=== PATIENT | female | born 1965 | race Caucasian/White ===

== ENCOUNTER 2017-08-17 14:15 | Emergency (ER) | payer OTHER ==
[2017-08-17 14:33] VITALS: BP 179/81; PULSE 84; RESP 16; TEMP 98.4; O2SAT 99
[2017-08-17] MEDS ORDERED: DiphenhydrAMINE 50 mg/ml Inj IVP STA (16:37)
[2017-08-17] MEDS ORDERED: DiphenhydrAMINE 50 mg/ml Inj ONE (16:47)
--- NOTE | 2017-08-17 17:24 | ED PDOC ---
HPI: Allergic Reaction Time Seen by Provider: 08/17/17 16:33 Chief Complaint (Nursing): Allergic Reaction Chief Complaint (Provider): Allergic Reaction History Per: Patient History/Exam Limitations: no limitations Onset/Duration Of Symptoms: Days (x 1 week) Current Symptoms Are (Timing): Still Present Additional Complaint(s): 51 year old female presents to the ER complaining of tongue swelling and generalized itchiness for 1 week. Initially patient had difficulty swallowing, saw her PMD last week, was prescribed Claritin and methylprednisolone, which she took with some improvement. Her itchiness and tongue swelling have improved , but are somewhat persistent, prompting her to come to the ER. Patient states she has no known food allergies. PMD: Dr. Timmy Jaime Past Medical History Reviewed: Historical Data, Nursing Documentation, Vital Signs Vital Signs: Last Vital Signs Temp 98.4 F 08/17/17 14:29 Pulse 84 08/17/17 14:29 Resp 16 08/17/17 14:29 BP 179/81 H 08/17/17 14:29 Pulse Ox 99 08/17/17 14:29 - Medical History PMH: Anxiety, HTN, Migraine - Surgical History Surgical History: - Family History Family History: States: Unknown Family Hx - Immunization History Hx Tetanus Toxoid Vaccination: No Hx Influenza Vaccination: No Hx Pneumococcal Vaccination: No - Home Medications Home Medications: Ambulatory Orders Medication Instructions Recorded Naproxen [Naprosyn] 500 mg PO BID #20 tablet 11/09/15 DiphenhydrAMINE [Benadryl] 50 mg PO Q6 PRN #24 cap 08/17/17 Epinephrine [Epipen] 0.3 mg IJ ONCE PRN #1 auto.injct 08/17/17 Famotidine [Pepcid] 20 mg PO BID #10 tab 08/17/17 predniSONE [predniSONE Tab] 3 tab PO DAILY #12 tab 08/17/17 - Allergies Allergies/Adverse Reactions: Allergies Allergy/AdvReac Type Severity Reaction Status Date / Time Penicillins Allergy ANAPHYLAXIS Verified 11/09/15 01:13 Review of Systems ROS Statement: Except As Marked, All Systems Reviewed And Found Negative ENT: Positive for: Other (tongue swelling, difficulty swallowing) Respiratory: Negative for: Shortness of Breath Skin: Positive for: Other (Generalized itchiness) Physical Exam - Reviewed Nursing Documentation Reviewed: Yes Vital Signs Reviewed: Yes - Physical Exam Appears: Positive for: Non-toxic, No Acute Distress Head Exam: Positive for: ATRAUMATIC, NORMAL INSPECTION, NORMOCEPHALIC Skin: Positive for: Normal Color, Warm, Dry. Negative for: Rash Eye Exam: Positive for: EOMI, Normal appearance, PERRL ENT: Positive for: Normal ENT Inspection, Pharynx Is (clear). Negative for: Tonsillar Swelling Neck: Positive for: Normal, Painless ROM Cardiovascular/Chest: Positive for: Regular Rate, Rhythm. Negative for: Murmur Respiratory: Positive for: Normal Breath Sounds. Negative for: Accessory Muscle Use, Respiratory Distress Extremity: Positive for: Normal ROM. Negative for: Deformity Neurologic/Psych: Positive for: Alert, Oriented. Negative for: Motor/Sensory Deficits - ECG O2 Sat by Pulse Oximetry: 99 (RA) Pulse Ox Interpretation: Normal Disposition - Clinical Impression Clinical Impression: Allergic reaction - Patient ED Disposition Is Patient to be Admitted: No - Disposition Disposition: Routine/Home Disposition Time: 17:38 Condition: FAIR Prescriptions: DiphenhydrAMINE [Benadryl] 50 mg PO Q6 PRN #24 cap PRN Reason: Rash Epinephrine [Epipen] 0.3 mg IJ ONCE PRN #1 auto.injct PRN Reason: Anaphylaxis Famotidine [Pepcid] 20 mg PO BID #10 tab predniSONE [predniSONE Tab] 3 tab PO DAILY #12 tab Instructions: Food Allergy (ED) Forms: [employer] (Nauruan) Print Language: NAMIBIAN Medical Decision Making Medical Decision Making: Time: 16:37 Initial Plan: --Benadryl 50 mg IV --Pepcid 20 mg IV --Solu-medrol 125 mg IV --Reevaluation Advised patient to follow up with PMD for referral to sign maker. Scribe Attestation: Documented by Emily Trinh, acting as a scribe for Balaji Anderson PA-C Provider Scribe Attestation: All medical record entries made by the Scribe were at my direction and personally dictated by me. I have reviewed the chart and agree that the record accurately reflects my personal performance of the history, physical exam, medical decision making, and the department course for this patient. I have also personally directed, reviewed, and agree with the discharge instructions and disposition.
== END 2017-08-17 18:08 | disposition home or self-care (01) ==
LOC: H.ER 14:15
DX: T78.40XA Allergy, unspecified, initial encounter (principal); R13.10 Dysphagia, unspecified; F41.9 Anxiety disorder, unspecified; I10 Essential (primary) hypertension; Z88.0 Allergy status to penicillin
CPT/HCPCS: 96374; 96375; 99282; J1200; J2930

== ENCOUNTER 2017-08-29 00:55 | Emergency (ER) | payer OTHER ==
[2017-08-29 01:08] VITALS: PULSE 99; TEMP 98.6
[2017-08-29] MEDS ORDERED: DiphenhydrAMINE 50 mg/ml Inj IM STA (01:44)
[2017-08-29] MEDS ORDERED: DiphenhydrAMINE 50 mg/ml Inj ONE (02:01)
--- NOTE | 2017-08-29 02:01 | ED PDOC ---
HPI: Allergic Reaction Time Seen by Provider: 08/29/17 01:25 Chief Complaint (Nursing): Allergic Reaction History Per: Patient, Family Additional Complaint(s): Pt. states for the past 2 weeks she's been having intermittent pruritic rash. States she was initially seen in ED on 08/18/2017 and was dc'd with steroids which provided transient relief of rash. She's been taking benadryl intermittently. Today rash on face did not improve with Benadryl until they came to ED and rash although present it has actually decreased in redness and pruritus. Last dose of Benadryl was taken at 1700 yesterday. Denies fever, SOB, throat swelling, hx of allergic reactions. 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 Past Medical History Reviewed: Historical Data, Nursing Documentation, Vital Signs Vital Signs: Last Vital Signs Temp 98.6 F 08/29/17 01:04 Pulse 99 H 08/29/17 01:04 Resp 16 08/29/17 01:04 BP 162/92 H 08/29/17 01:04 Pulse Ox 98 08/29/17 01:04 - Medical History PMH: Anxiety, HTN, Migraine - Surgical History Surgical History: - Family History Family History: States: No Known Family Hx - Immunization History Hx Tetanus Toxoid Vaccination: No Hx Influenza Vaccination: No Hx Pneumococcal Vaccination: No - Home Medications Home Medications: Ambulatory Orders Medication Instructions Recorded Naproxen [Naprosyn] 500 mg PO BID #20 tablet 11/09/15 DiphenhydrAMINE [Benadryl] 50 mg PO Q6 PRN #24 cap 08/17/17 Epinephrine [Epipen] 0.3 mg IJ ONCE PRN #1 auto.injct 08/17/17 Famotidine [Pepcid] 20 mg PO BID #10 tab 08/17/17 predniSONE [predniSONE Tab] 3 tab PO DAILY #12 tab 08/17/17 - Allergies Allergies/Adverse Reactions: Allergies Allergy/AdvReac Type Severity Reaction Status Date / Time Penicillins Allergy ANAPHYLAXIS Verified 11/09/15 01:13 Review of Systems ROS Statement: Except As Marked, All Systems Reviewed And Found Negative Skin: Positive for: Rash Physical Exam - Physical Exam Appears: Positive for: Well, Non-toxic, No Acute Distress Skin: Positive for: Normal Color, Warm, Rash (minimal erythema noted to b/l cheeks) Eye Exam: Positive for: EOMI, Normal appearance, PERRL ENT: Positive for: Normal ENT Inspection Neck: Positive for: Normal, Painless ROM Cardiovascular/Chest: Positive for: Regular Rate, Rhythm Respiratory: Positive for: Normal Breath Sounds. Negative for: Wheezing, Respiratory Distress Back: Positive for: Normal Inspection Extremity: Positive for: Normal ROM Neurologic/Psych: Positive for: Alert, Oriented. Negative for: Aphasia, Facial Droop - ECG O2 Sat by Pulse Oximetry: 98 - Progress ED Course And Treament: Benadryl 50mg IM ordered. On re-evaluation, pt. reports feeling better. Denies throat swelling, SOB. Disposition - Clinical Impression Clinical Impression: Rash - Patient ED Disposition Is Patient to be Admitted: No - Disposition Referrals: Inna Carranza [Outside] Disposition: Routine/Home Disposition Time: 02:02 Condition: STABLE Additional Instructions: Continue Benadryl as prescribed initially. Instructions: Skin Rash (DC) Forms: [employer] (Bruneian) Print Language: ERITREAN
[2017-08-29 02:29] VITALS: BP 147/89; RESP 18; O2SAT 99
== END 2017-08-29 02:29 | disposition home or self-care (01) ==
LOC: H.ER 00:55
DX: R21 Rash and other nonspecific skin eruption (principal); F41.9 Anxiety disorder, unspecified; I10 Essential (primary) hypertension; Z88.0 Allergy status to penicillin
CPT/HCPCS: 96372; 99282; J1200

== ENCOUNTER 2018-01-09 18:46 | Observation (INO) | payer OTHER ==
--- NOTE | 2018-01-09 19:21 | ED PDOC ---
HPI: Allergic Reaction <Derrek Sykes Y - Last Filed: 01/09/18 19:51> Chief Complaint (Provider): Allergic reaction History Per: Patient History/Exam Limitations: no limitations Onset/Duration Of Symptoms: Days (1) Current Symptoms Are (Timing): Still Present Context: denies: Travel, Food, Recent Trauma Possible Cause: Unknown Associated Symptoms: Swelling, Dizziness, Itching, Redness Home/EMS Treatment: Benadryl Severity: Mild Pain Scale Rating Of: 0 Additional History Per: Patient Additional Complaint(s): PT is a 52 yo f with PMH of HTN, Hyperlipidemia present today with a CC of allergic reaction. Pt state yesterday night she had a swelling on her lips and today morning her face, hand and feet are swelled as well B/L. PT state that she was having difficulty breathing and she tuck Benadryl at 7:00am, 12:30pm and 4:30Pm with no improvement. Pt had a one episode of vomit and a light headache and chills in the morning and dry cough for the past 2 days. The swelling is persistent and her feets are become itchy. She state that she is allergic to penecillin and shrimp but denies consuming any nor her family. She state that she had these episode before and first episode was on september after the primary care doctor prescribed amlodipine along with lisinopril. Pt denies being intubated for any of these episode. Pt denies having fever, Nausea, vomit , chest pain, abdominal pain, diarrhea, polyuria, dysuria at the moment. <Jj Jha - Last Filed: 01/10/18 00:27> Chief Complaint (Nursing): Allergic Reaction Past Medical History Vital Signs: Last Vital Signs Temp 98.2 F 01/09/18 18:51 Pulse 99 H 01/09/18 18:51 Resp 01/09/18 18:51 BP 126/87 01/09/18 18:51 Pulse Ox 100 01/09/18 19:44 <Rajeev Sykespeterson Y - Last Filed: 01/09/18 19:51> Reviewed: Historical Data, Nursing Documentation, Vital Signs Vital Signs: Last Vital Signs Temp 98.2 F 01/09/18 18:51 Pulse 99 H 01/09/18 18:51 Resp 16 01/09/18 18:51 BP 126/87 01/09/18 18:51 Pulse Ox 100 01/09/18 18:51 - Medical History PMH: Anxiety, HTN, Migraine - Surgical History Surgical History: - Family History Family History: States: Unknown Family Hx - Living Arrangements Living Arrangements: With Family - Social History Current smoker - smoking cessation education provided: No Ex-Smoker (has not smoked in the last 12 months): No Alcohol: None Drugs: Denies - Immunization History Hx Tetanus Toxoid Vaccination: No Hx Influenza Vaccination: No Hx Pneumococcal Vaccination: No <Jj Jha - Last Filed: 01/10/18 00:27> - Home Medications Home Medications: Ambulatory Orders Medication Instructions Recorded Atorvastatin [Lipitor] 10 mg PO DAILY 01/09/18 Lisinopril [Zestril] 5 mg PO DAILY 01/09/18 amLODIPine [Norvasc] 5 mg PO DAILY 01/09/18 - Allergies Allergies/Adverse Reactions: Allergies Allergy/AdvReac Type Severity Reaction Status Date / Time shellfish derived Allergy Intermediate SWELLING Verified 01/09/18 19:33 Penicillins Allergy ANAPHYLAXIS Verified 01/09/18 23:09 Review of Systems ROS Statement: Except As Marked, All Systems Reviewed And Found Negative Constitutional: Positive for: Fever, Chills (in the morning, denies having any at the moment ). Negative for: Weakness, Weight loss Eyes: Negative for: Pain, Vision Change, Conjunctivae Inflammation Cardiovascular: Positive for: Light Headedness. Negative for: Chest Pain, Palpitations, Edema Respiratory: Positive for: Cough (started 2 days ago) Gastrointestinal: Positive for: Vomiting (one episode in the morning ). Negative for: Nausea, Abdominal Pain, Diarrhea Genitourinary Female: Negative for: Dysuria, Frequency, Incontinence Musculoskeletal: Negative for: Neck Pain Neurological: Positive for: Dizziness. Negative for: Weakness, Numbness, Change in Speech, Confusion, Seizures, Altered Mental Status <Jj Jha - Last Filed: 01/10/18 00:27> Physical Exam - Reviewed Nursing Documentation Reviewed: Yes Vital Signs Reviewed: No - Physical Exam Appears: Positive for: Well, Non-toxic, No Acute Distress Head Exam: Positive for: ATRAUMATIC, NORMAL INSPECTION, NORMOCEPHALIC Skin: Positive for: Normal Color, Warm, Dry, Rash (legs and hand B/L) Eye Exam: Positive for: Normal appearance ENT: Positive for: Normal ENT Inspection, Other (generalized edema of the face ) Neck: Positive for: Normal Cardiovascular/Chest: Positive for: Regular Rate, Rhythm Respiratory: Positive for: Normal Breath Sounds. Negative for: Decreased Breath Sounds, Crackles, Rales, Rhonchi, Stridor, Wheezing Gastrointestinal/Abdominal: Positive for: Normal Exam, Bowel Sounds, Soft. 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 Time 20:40 Re-assess Pt state that her swelling is exacerbated On PE : Pt is laying down comfortable with no acute distress Change noted: Mild edema of the lateral left side of tongue Tender edema on the Hand and feet bilateral Plan: Continue same management add Tylenol 650 mg PO Add Benadryl 50mg IV CBC and CMP ordered Time: 22:33 Re-assess Pt state her tongue is more swelling and feel worse On PE: pt is laying down with no acute distress change noted Tongue is more edematous CBC and CMP are WNL except for WBC of 13 and Neutrophil% 9.4 Plan: Pt will be admitted on telemetry to tx and surveillance of allergic reaction TIme 00:25 Pt re-assess Pt is stable but not improved Plan Called Dr. Keith the hospitalist to admit the patient <Jj Jha - Last Filed: 01/10/18 00:27> Addendum Addendum: 01/09/18 19:51 Patient seen and evaluated by myself. 26 year old female has had a history of allergic reactions in the past. Patient comes today for swelling around the face and other parts of her body. Patient reports of taking Benadryl at home. On exam, patient presents with no angioedema and lungs are clear to auscultation. Patient given steroids here and will be re-evaluated. Scribe Attestation: Documented by Hayes Jaquez acting as a scribe for Dr. Derrek Sykes MD. Provider Scribe Attestation: All medical record entries made by the Scribe were at my direction and personally dictated by me. I have reviewed the chart and agree that the record accurately reflects my personal performance of the history, physical exam, medical decision making, and the department course for this patient. I have also personally directed, reviewed, and agree with the discharge instructions and disposition. <Derrek Sykes Y - Last Filed: 01/09/18 19:51>
[2018-01-09] MEDS ORDERED: DiphenhydrAMINE 50 mg/ml Inj ONE (21:12)
[2018-01-09] MEDS ORDERED: DiphenhydrAMINE 50 mg/ml Inj IVP STA (21:40)
[2018-01-09 21:48] LABS: BASO % 0.3 % (0.0-2.0); EOS # 0.3 K/uL (0.0-0.7); EOS % 2.7 % (0.0-4.0); LYMPH # 2.3 K/uL (1.0-4.3); LYMPH % 18.1 % (20.0-40.0); MEAN CELL VOLUME 85.5 fl (81.0-99.0); MEAN CORPUSCULAR HEMOGLOBIN 28.7 pg (27.0-31.0); MEAN CORPUSCULAR HGB CONC 33.6 g/dL (33.0-37.0); MEAN PLATELET VOLUME 9.2 fl (7.2-11.7); MONO # 0.8 K/uL (0.0-0.8); MONO % 6.2 % (0.0-10.0); NEUT # 9.4 K/uL (1.8-7.0); NEUT % 72.7 % (50.0-75.0); NRBC % 0.1 % (0.0-0.0); RBC 4.89 Mil/uL (3.80-5.20)
[2018-01-09 22:32] LABS: BLOOD UREA NITROGEN 10 mg/dl (7-17); GFR AFRICAN-AMERICAN > 60; GFR NON-AFRICAN AMERICAN > 60
[2018-01-09 22:33] LABS: ALB/GLOB RATIO 1.4 (1.0-2.1); ALBUMIN 4.6 g/dL (3.5-5.0); ALT/SGPT 28 U/L (9-52); AST/SGOT 20 U/L (14-36); CALCIUM 9.5 mg/dL (8.4-10.2)
--- NOTE | 2018-01-10 00:27 | CP.PCM.HP ---
History of Present Illness - History of Present Illness History of Present Illness: PMD: Addison Warner MD Chief complaint: Swelling of face/ hands and feet The Patient was seen and examined in the ED HPI: The Hx was obtained from the patient her and after review of the medical records. She is a 52 years old female with hx of HTN on Lisinopril; Migraine and multiple visits to the ED for Allergic reactions with swollen tongue, face and generalized itching. She comes today with 2 days of swollen lips, face ,tongue and hands. She referred some difficulty breathing today and took Benadryl without improvement, vomiting, headache with chills,and lightheadidness. No documented fever, chest pain, diarrhea, dysuria nor frequency. PMH: HTN; HLD: Migraine: Anxiety PSH: C section SH: Never Smoked, no illegal drug use; No Alcohol FH: States: Unknown Family Hx Allergies:Shellfish and Pencilling Medication: Reviewed Present on Admission - Present on Admission Any Indicators Present on Admission: No History of DVT/PE: No History of Uncontrolled Diabetes: No Urinary Catheter: No Decubitus Ulcer Present: No Review of Systems - Constitutional Constitutional: Chills, Fever, Headache. absent: Anorexia, Fatigue - EENT Eyes: absent: Blurred Vision, Diplopia, Floaters, Photophobia, Requires Corrective Lenses Ears: absent: Decreased Hearing, Ear Discharge, Ear Pain Nose/Mouth/Throat: absent: Epistaxis, Nasal Congestion, Nasal Discharge - Cardiovascular Cardiovascular: Edema, Palpitations. absent: Chest Pain at Rest, Dyspnea - Respiratory Respiratory: Cough. absent: Dyspnea, Wheezing, Stridor - Gastrointestinal Gastrointestinal: Abdominal Pain, Nausea. absent: Constipation, Diarrhea - Genitourinary Genitourinary: absent: Flank Pain, Hematuria, Urinary Incontinence, Urinary Frequency - Musculoskeletal Musculoskeletal: absent: Arthralgias, Back Pain, Myalgias - Integumentary Integumentary: Swelling. absent: Skin Pain, Skin Ulcer, Sores, Striae - Neurological Neurological: absent: Confusion, Focal Weakness, Loss of Vision, Restless Legs, Weakness - Psychiatric Psychiatric: absent: Anxiety, Depression, Panic Attacks - Endocrine Endocrine: absent: Palpitations, Polydipsia, Polyphagia, Polyuria - Hematologic/Lymphatic Hematologic: absent: Easy Bleeding, Easy Bruising Past Patient History - Past Medical History & Family History Past Medical History?: Yes - Past Social History Smoking Status: Unknown If Ever Smoked Chewing Tobacco Use: No Cigar Use: No Alcohol: None Drugs: Denies Home Situation {Lives}: With Family - CARDIAC Hx Hypercholesterolemia: Yes Hx Hypertension: Yes - PULMONARY Hx Respiratory Disorders: No - NEUROLOGICAL Hx Migraine: Yes - HEENT Hx HEENT Problems: No - RENAL Hx Chronic Kidney Disease: No - ENDOCRINE/METABOLIC Hx Endocrine Disorders: No - HEMATOLOGICAL/ONCOLOGICAL Hx Blood Disorders: No - INTEGUMENTARY Hx Dermatological Problems: No - MUSCULOSKELETAL/RHEUMATOLOGICAL Hx Musculoskeletal Disorders: No - GASTROINTESTINAL Hx Gastrointestinal Disorders: No Hx Gastroesophageal Reflux: No - GENITOURINARY/GYNECOLOGICAL Hx Genitourinary Disorders: No - PSYCHIATRIC Hx Anxiety: Yes - SURGICAL HISTORY Hx Surgeries: Yes Hx Section: Yes - ANESTHESIA Hx Anesthesia: Yes Meds Allergies/Adverse Reactions: Allergies Allergy/AdvReac Type Severity Reaction Status Date / Time shellfish derived Allergy Intermediate SWELLING Verified 01/09/18 19:33 Penicillins Allergy ANAPHYLAXIS Verified 01/09/18 23:09 Physical Exam - Constitutional Appears: No Acute Distress - Head Exam Head Exam: ATRAUMATIC, NORMOCEPHALIC Additional comments: Mild swelling to both sides of the face and below the eyes. - Eye Exam Eye Exam: EOMI, Periorbital tenderness Pupil Exam: NORMAL ACCOMODATION, PERRL - ENT Exam ENT Exam: Mucous Membranes Moist, Normal Exam, Normal External Ear Exam Additional comments: Swollen tongue - Neck Exam Neck exam: Positive for: Full Rom, Normal Inspection - Respiratory Exam Respiratory Exam: Clear to Auscultation Bilateral. absent: Rales, Rhonchi, Wheezes - Cardiovascular Exam Cardiovascular Exam: REGULAR RHYTHM, RRR, +S1, +S2. absent: Gallop, JVD - GI/Abdominal Exam GI & Abdominal Exam: Normal Bowel Sounds, Soft. absent: Mass, Organomegaly, Tenderness - Rectal Exam Rectal Exam: Deferred - Extremities Exam Extremities exam: Positive for: full ROM Additional comments: Both feet swollen at the dorsal region, tender to palpation, mild edema to the palms of the hands. - Back Exam Back exam: NORMAL INSPECTION. absent: CVA tenderness (L), CVA tenderness (R) - Neurological Exam Neurological exam: Alert, CN II-XII Intact, Oriented x3, Reflexes Normal - Psychiatric Exam Psychiatric exam: Normal Affect, Normal Mood - Skin Skin Exam: Dry, Normal Color, Pallor, Warm Results - Vital Signs Recent Vital Signs: Last Vital Signs Temp 99.2 F 01/09/18 23:11 Pulse 91 H 01/09/18 23:11 Resp 18 01/09/18 23:11 BP 115/73 01/09/18 23:11 Pulse Ox 100 01/10/18 00:27 - Labs Result Diagrams: 01/09/18 21:35 01/09/18 21:55 Labs: Laboratory Results - last 24 hr 01/09/18 01/09/18 21:35 21:55 WBC 13.0 H RBC 4.89 Hgb 14.0 Hct 41.8 MCV 85.5 MCH 28.7 MCHC 33.6 RDW 14.0 Plt Count 306 MPV 9.2 Neut % (Auto) 72.7 Lymph % (Auto) 18.1 L Jerome % (Auto) 6.2 Eos % (Auto) 2.7 Baso % (Auto) 0.3 Neut # (Auto) 9.4 H Lymph # (Auto) 2.3 Jerome # (Auto) 0.8 Eos # (Auto) 0.3 Baso # (Auto) 0.0 Sodium 141 Potassium 4.5 Chloride 104 Carbon Dioxide 23 Anion Gap 19 BUN 10 Creatinine 0.6 L Est GFR ( Amer) > 60 Est GFR (Non-Af Amer) > 60 Random Glucose 119 H Calcium 9.5 Total Bilirubin 0.3 AST 20 ALT 28 Alkaline Phosphatase 97 Total Protein 7.9 Albumin 4.6 Globulin 3.3 Albumin/Globulin Ratio 1.4 Assessment & Plan - Assessment and Plan (Free Text) Assessment: #. Allergic reaction with Angeoedema #. Leukocytosis #. HTN #. Anxiety Plan: 52 years old female with hx of HTN on Lisinopril; Migraine and multiple visits to the ED for Allergic reactions with swollen tongue, face and generalized itching. She comes today with 2 days of swollen lips, face ,tongue and hands with some difficulty breathing and improvement from Benadryl. #. Allergic reaction with Angeoedema - D/C Lisinopril - Methylpredisolone IV - Benadryl - Pepcid - Tylenol for pain #. Leukocytosis reactive - follow WBC #. HTN - Amlodipine - follow Blood pressures #. Anxiety - Xanax PRN #. DVT prophylaxis with lovenox #. Code Status: Full - Date & Time Date: 01/10/18 Time: 00:27
[2018-01-10] MEDS ORDERED: methylPREDNISolone 40 MG in Sodium Chloride 0.9% 50 ML IVPB SCH (04:00)
[2018-01-10] MEDS: DiphenhydrAMINE 50 mg/ml Inj IVP SCH ×2 (05:04→09:04)
[2018-01-10] MEDS: MethylPREDNISolone 40 mg Vial IVP SCH ×2 (05:04→09:05)
[2018-01-10 05:36] LABS: BASO % 0.2 % (0.0-2.0); EOS % 0.1 % (0.0-4.0); HEMOGLOBIN 13.8 g/dL (12.0-16.0); LYMPH % 9.2 % (20.0-40.0); MEAN CELL VOLUME 85.1 fl (81.0-99.0); MEAN PLATELET VOLUME 8.7 fl (7.2-11.7); MONO # 0.1 K/uL (0.0-0.8); MONO % 0.8 % (0.0-10.0); NEUT % 89.7 % (50.0-75.0); PLATELET COUNT 313 K/uL (130-400); RBC 4.78 Mil/uL (3.80-5.20); RED CELL DISTRIBUTION WIDTH 13.6 % (11.5-14.5); WHITE BLOOD COUNT 11.2 K/uL (4.8-10.8)
[2018-01-10 08:03] VITALS: BP 100/61; PULSE 77; RESP 20; TEMP 97.7; O2SAT 99
[2018-01-10] MEDS: Enoxaparin 40 mg Syringe SC SCH ×2 (09:05→09:12)
--- NOTE | 2018-01-10 09:10 | CP.PCM.DIS ---
Provider - Provider Date of Admission: 01/09/18 22:50 Attending physician: Stiven Baugh Primary care physician: Dr Jaime Time Spent in preparation of Discharge (in minutes): 30 Diagnosis - Discharge Diagnosis (1) Angioedema due to angiotensin converting enzyme inhibitor (KIMBERLEY-I) Status: Acute (2) HTN (hypertension) Status: Chronic Hospital Course - Lab Results Lab Results: Most Recent Lab Values WBC 11.2 K/uL (4.8-10.8) H 01/10/18 05:12 RBC 4.78 Mil/uL (3.80-5.20) 01/10/18 05:12 Hgb 13.8 g/dL (12.0-16.0) 01/10/18 05:12 Hct 40.7 % (34.0-47.0) 01/10/18 05:12 MCV 85.1 fl (81.0-99.0) 01/10/18 05:12 MCH 29.0 pg (27.0-31.0) 01/10/18 05:12 MCHC 34.0 g/dL (33.0-37.0) 01/10/18 05:12 RDW 13.6 % (11.5-14.5) 01/10/18 05:12 Plt Count 313 K/uL (130-400) 01/10/18 05:12 MPV 8.7 fl (7.2-11.7) 01/10/18 05:12 Neut % (Auto) 89.7 % (50.0-75.0) H 01/10/18 05:12 Lymph % (Auto) 9.2 % (20.0-40.0) L 01/10/18 05:12 Wythe % (Auto) 0.8 % (0.0-10.0) 01/10/18 05:12 Eos % (Auto) 0.1 % (0.0-4.0) 01/10/18 05:12 Baso % (Auto) 0.2 % (0.0-2.0) 01/10/18 05:12 Neut # (Auto) 10.0 K/uL (1.8-7.0) H 01/10/18 05:12 Lymph # (Auto) 1.0 K/uL (1.0-4.3) 01/10/18 05:12 Wythe # (Auto) 0.1 K/uL (0.0-0.8) 01/10/18 05:12 Eos # (Auto) 0.0 K/uL (0.0-0.7) 01/10/18 05:12 Baso # (Auto) 0.0 K/uL (0.0-0.2) 01/10/18 05:12 Sodium 141 mmol/l (132-148) 01/09/18 21:55 Potassium 4.5 MMOL/L (3.6-5.0) 01/09/18 21:55 Chloride 104 mmol/L (98-107) 01/09/18 21:55 Carbon Dioxide 23 mmol/L (22-30) 01/09/18 21:55 Anion Gap 19 (10-20) 01/09/18 21:55 BUN 10 mg/dl (7-17) 01/09/18 21:55 Creatinine 0.6 mg/dl (0.7-1.2) L 01/09/18 21:55 Est GFR ( Amer) > 60 01/09/18 21:55 Est GFR (Non-Af Amer) > 60 01/09/18 21:55 Random Glucose 119 mg/dL (65-105) H 01/09/18 21:55 Calcium 9.5 mg/dL (8.4-10.2) 01/09/18 21:55 Total Bilirubin 0.3 mg/dl (0.2-1.3) 01/09/18 21:55 AST 20 U/L (14-36) 01/09/18 21:55 ALT 28 U/L (9-52) 01/09/18 21:55 Alkaline Phosphatase 97 U/L (38-126) 01/09/18 21:55 Total Protein 7.9 G/DL (6.3-8.2) 01/09/18 21:55 Albumin 4.6 g/dL (3.5-5.0) 01/09/18 21:55 Globulin 3.3 gm/dL (2.2-3.9) 01/09/18 21:55 Albumin/Globulin Ratio 1.4 (1.0-2.1) 01/09/18 21:55 - Hospital Course Hospital Course: 52 years old female with hx of HTN on Lisinopril; Migraine and multiple visits to the ED for Allergic reactions with swollen tongue, face and generalized itching. She comes today with 2 days of swollen lips, face ,tongue and hands with some difficulty breathing and improvement from Benadryl. 1. Allergic reaction with Angioedema prob sec to KIMBERLEY inhibitor - D/C Lisinopril - received Methylprednisolone IV and Benadryl - Pepcid - Tylenol for pain - angioedema resolved, no respiratory problem, no wheezing - will d/c pt home on PO medrol dose tanvi - appt with receivables specialist liudmila for further work up to r/o other poss etiology of Angioedema 2. Leukocytosis reactive - follow WBC 3. HTN - cont Amlodipine - d/c Lisinopril 4. Anxiety - Xanax PRN #. DVT prophylaxis with lovenox Discharge Exam - Head Exam Head Exam: ATRAUMATIC, NORMAL INSPECTION, NORMOCEPHALIC - Eye Exam Eye Exam: Normal appearance, PERRL Pupil Exam: NORMAL ACCOMODATION - ENT Exam ENT Exam: Mucous Membranes Moist, Normal External Ear Exam - Neck Exam Neck exam: Full Rom - Respiratory Exam Respiratory Exam: NORMAL BREATHING PATTERN. absent: Respiratory Distress - Cardiovascular Exam Cardiovascular Exam: REGULAR RHYTHM, +S1, +S2 - GI/Abdominal Exam GI & Abdominal Exam: Normal Bowel Sounds, Soft. absent: Tenderness - Extremities Exam Extremities exam: full ROM, normal capillary refill - Back Exam Back exam: FULL ROM. absent: CVA tenderness (L), CVA tenderness (R) - Neurological Exam Neurological exam: Alert, CN II-XII Intact, Oriented x3, Reflexes Normal - Psychiatric Exam Psychiatric exam: Normal Affect, Normal Mood - Skin Skin Exam: Dry, Normal Color, Warm Discharge Plan - Discharge Medications Prescriptions: DiphenhydrAMINE [Benadryl] 25 mg PO Q6 PRN #20 cap PRN Reason: Allergy Symptoms Famotidine [Pepcid] 20 mg PO DAILY #30 tab Methylprednisolone [Medrol Dose Pack (21 tabs)] 4 mg PO ASDIR #21 mg - Follow Up Plan Condition: IMPROVED Disposition: HOME/ ROUTINE Instructions: Urticaria (GEN), Acute Rash (DC), Acute Rash (GEN) Additional Instructions: appt with Dr Dimas for further allergy testing to r/o other etiology for Angioedema ff up with Dr Addison nur d/c Lisinopril No NSAIDS Referrals: Jason Dimas MD [Staff Provider] - Timmy Jaime MD [Family Provider] -
[2018-01-10 13:20] LABS: BANDS 1 % (0-2); LYMPHOCYTE 11 % (20-50); MONOCYTE 1 % (0-10); NEUTROPHIL 87 % (42-75); PLATELET ESTIMATE NORMAL (NORMAL); TOTAL CELLS COUNTED 100
== END 2018-01-10 11:13 | disposition home or self-care (01) ==
LOC: H.ER 18:46 → H.ERHOLD 22:50 → H.TEL 01-10 00:56
PROVIDERS: ADMIT Internal Medicine; ATTEND Internal Medicine
DX: T78.3XXA Angioneurotic edema, initial encounter (principal); L29.9 Pruritus, unspecified; T46.4X5A Adverse effect of angiotensin-converting-enzyme inhibitors, initial encounter; I10 Essential (primary) hypertension; G43.909 Migraine, unspecified, not intractable, without status migrainosus; E78.00 Pure hypercholesterolemia, unspecified; F41.9 Anxiety disorder, unspecified
CPT/HCPCS: 36415; 80053; 81025; 85025; 96374; 96375; 96376; 99283; G0378; J1200; J2920; J2930

== ENCOUNTER 2018-06-04 06:54 | Emergency (ER) | payer OTHER ==
[2018-06-04 07:50] VITALS: TEMP 98
[2018-06-04] MEDS ORDERED: Sodium Chloride 0.9% 1,000 ML IV STA (07:51)
[2018-06-04] MEDS ORDERED: Iohexol 240 (50 ml) PO ONE (07:51)
[2018-06-04] MEDS ORDERED: Iohexol 240 (50 ml) ONE (08:11)
[2018-06-04 08:16] LABS: BASO # 0.1 K/uL (0.0-0.2); BASO % 0.6 % (0.0-2.0); EOS # 0.7 K/uL (0.0-0.7); EOS % 7.2 % (0.0-4.0); HEMOGLOBIN 13.3 g/dL (12.0-16.0); LYMPH % 21.6 % (20.0-40.0); MEAN CELL VOLUME 87.2 fl (81.0-99.0); MEAN CORPUSCULAR HEMOGLOBIN 28.6 pg (27.0-31.0); MEAN CORPUSCULAR HGB CONC 32.7 g/dL (33.0-37.0); MEAN PLATELET VOLUME 8.2 fl (7.2-11.7); MONO # 0.7 K/uL (0.0-0.8); MONO % 7.9 % (0.0-10.0); NEUT # 5.7 K/uL (1.8-7.0); NEUT % 62.7 % (50.0-75.0); NRBC % 0.1 % (0.0-0.0); RBC 4.65 Mil/uL (3.80-5.20); RED CELL DISTRIBUTION WIDTH 13.8 % (11.5-14.5); WHITE BLOOD COUNT 9.1 K/uL (4.8-10.8)
[2018-06-04 08:21] LABS: ALB/GLOB RATIO 1.1 (1.0-2.1); ALBUMIN 4.1 g/dL (3.5-5.0); ALT/SGPT 29 U/L (9-52); AST/SGOT 21 U/L (14-36); BLOOD UREA NITROGEN 11 mg/dl (7-17); CALCIUM 9.2 mg/dL (8.4-10.2); GFR NON-AFRICAN AMERICAN > 60
[2018-06-04] MEDS ORDERED: Morphine 4 MG/ML VIAL IV ONE (09:40)
[2018-06-04] MEDS ORDERED: Iohexol 300 100 ML IJ ONE (09:49)
[2018-06-04] MEDS ORDERED: Sodium Chloride 0.9% 50 ML IV ONE (09:49)
--- NOTE | 2018-06-04 10:23 | CT ---
Date of service: 06/04/2018 PROCEDURE: CT Abdomen and Pelvis with contrast HISTORY: abd pain COMPARISON: None. TECHNIQUE: Contrast dose: Radiation dose: Total exam DLP = 640.01 mGy-cm. This CT exam was performed using one or more of the following dose reduction techniques: Automated exposure control, adjustment of the mA and/or kV according to patient size, and/or use of iterative reconstruction technique. FINDINGS: LOWER THORAX: Unremarkable. LIVER: Unremarkable. No gross lesion or ductal dilatation. GALLBLADDER AND BILE DUCTS: Unremarkable. PANCREAS: Unremarkable. No gross lesion or ductal dilatation. SPLEEN: Unremarkable. ADRENALS: Unremarkable. No mass. KIDNEYS AND URETERS: Unremarkable. No hydronephrosis. No solid mass. VASCULATURE: Unremarkable. No aortic aneurysm. No aortic atherosclerotic calcification or mural plaque present. BOWEL: Diverticulosis.No obstruction. No gross mural thickening. APPENDIX: Normal appendix. PERITONEUM: Unremarkable. No free fluid. No free air. LYMPH NODES: Unremarkable. No enlarged lymph nodes. BLADDER: Unremarkable. REPRODUCTIVE: Unremarkable. BONES: No acute fracture. OTHER FINDINGS: None. IMPRESSION: Unremarkable contrast enhanced CT of the abdomen and pelvis.
--- NOTE | 2018-06-04 10:28 | ED PDOC ---
HPI: Abdomen Time Seen by Provider: 06/04/18 07:11 Chief Complaint (Nursing): Abdominal Pain Chief Complaint (Provider): Abdominal Pain History Per: Patient History/Exam Limitations: no limitations Onset/Duration Of Symptoms: Days (x3) Current Symptoms Are (Timing): Still Present Quality Of Discomfort: Burning Associated Symptoms: Nausea, Vomiting, Diarrhea, Urinary Symptoms Additional Complaint(s): 52 y/o female with a PMHx of HTN and high cholesterol presents to the ED for evaluation of abdominal pain, onset three days ago. Patient describes pain as burning and constant. Patient states abdominal pain is associated with back pain, nausea, vomiting, diarrhea and dysuria. Patient reports she is urinating less frequently. Patient describes back pain as sharp. Denies chest pain, shortness of breath, dyspnea, hand pain, foot pain and any numbness. PMD: none Past Medical History Reviewed: Historical Data, Nursing Documentation, Vital Signs Vital Signs: Last Vital Signs Temp 98 F 06/04/18 07:49 Pulse 86 06/04/18 07:49 Resp 18 06/04/18 07:49 BP 150/96 H 06/04/18 07:49 Pulse Ox 100 06/04/18 07:49 - Medical History PMH: Anxiety, HTN, Hypercholesterolemia, Hyperlipidemia, Migraine Denies: HIV, Chronic Kidney Disease - Surgical History Surgical History: - Family History Family History: States: Unknown Family Hx - Immunization History Hx Tetanus Toxoid Vaccination: No Hx Influenza Vaccination: No Hx Pneumococcal Vaccination: No - Home Medications Home Medications: Ambulatory Orders Medication Instructions Recorded Atorvastatin [Lipitor] 10 mg PO DAILY 01/09/18 amLODIPine [Norvasc] 5 mg PO DAILY 01/09/18 Acetaminophen [Tylenol 325mg tab] 650 mg PO Q4 PRN tab 01/10/18 DiphenhydrAMINE [Benadryl] 25 mg PO Q6 PRN #20 cap 01/10/18 Famotidine [Pepcid] 20 mg PO DAILY #30 tab 01/10/18 Methylprednisolone [Medrol Dose 4 mg PO ASDIR #21 mg 01/10/18 Pack (21 tabs)] Famotidine [Pepcid] 20 mg PO DAILY PRN #6 tab 06/04/18 - Allergies Allergies/Adverse Reactions: Allergies Allergy/AdvReac Type Severity Reaction Status Date / Time shellfish derived Allergy Intermediate SWELLING Verified 06/04/18 07:31 Penicillins Allergy ANAPHYLAXIS Verified 06/04/18 07:31 Review of Systems ROS Statement: Except As Marked, All Systems Reviewed And Found Negative Cardiovascular: Negative for: Chest Pain Respiratory: Negative for: Shortness of Breath, Other (dyspnea) Gastrointestinal: Positive for: Nausea, Vomiting, Abdominal Pain, Diarrhea Musculoskeletal: Positive for: Back Pain. Negative for: Hand Pain, Foot Pain Neurological: Negative for: Numbness Physical Exam - Reviewed Nursing Documentation Reviewed: Yes Vital Signs Reviewed: Yes - Physical Exam Appears: Positive for: No Acute Distress Head Exam: Positive for: ATRAUMATIC, NORMOCEPHALIC Skin: Positive for: Normal Color, Warm, Dry Eye Exam: Positive for: Normal appearance, EOMI, PERRL Neck: Positive for: Normal, Painless ROM Cardiovascular/Chest: Positive for: Regular Rate, Rhythm. Negative for: Murmur Respiratory: Positive for: Normal Breath Sounds. Negative for: Respiratory Distress Gastrointestinal/Abdominal: Positive for: Soft, Tenderness (RLQ Tenderness) Back: Positive for: Normal Inspection. Negative for: L CVA Tenderness, R CVA Tenderness Extremity: Positive for: Normal ROM. Negative for: Tenderness, Pedal Edema, Deformity Neurologic/Psych: Positive for: Alert, Oriented. Negative for: Motor/Sensory Deficits - Laboratory Results Result Diagrams: 06/04/18 08:00 06/04/18 08:00 Interpretation Of Abn Labs: no acute - ECG O2 Sat by Pulse Oximetry: 100 (RA) Pulse Ox Interpretation: Normal - CT Scan/US ct Other Rad Studies (CT/US): Read By Radiologist Other Rad Interpretation: no acute - Progress ED Course And Treament: 1244: Stable. AAOx3. Pain free. Tolerated PO. FU with pcp. Medical Decision Making Medical Decision Making: Time: 0751 Plan: -- CT Abd/Pelvis PO & IV Contrast -- CMP -- ED Urine -- ED Urine Dipstick -- CBC with Differentials -- Morphine 4 mg IV -- Sodium Chloride IV 1000 mls/hr -- Iohexol 50 mL PO -- Pepcid 15 mg IVP -- Toradol 15 mg IVP -- Zofran Inj 4 mg IV Time: 1019 CT RESULTS FINDINGS: LOWER THORAX: Unremarkable. LIVER: Unremarkable. No gross lesion or ductal dilatation. GALLBLADDER AND BILE DUCTS: Unremarkable. PANCREAS: Unremarkable. No gross lesion or ductal dilatation. SPLEEN: Unremarkable. ADRENALS: Unremarkable. No mass. KIDNEYS AND URETERS: Unremarkable. No hydronephrosis. No solid mass. VASCULATURE: Unremarkable. No aortic aneurysm. No aortic atherosclerotic calcification or mural plaque present. BOWEL: Diverticulosis.No obstruction. No gross mural thickening. APPENDIX: Normal appendix. PERITONEUM: Unremarkable. No free fluid. No free air. LYMPH NODES: Unremarkable. No enlarged lymph nodes. BLADDER: Unremarkable. REPRODUCTIVE: Unremarkable. BONES: No acute fracture. OTHER FINDINGS: None. IMPRESSION: Unremarkable contrast enhanced CT of the abdomen and pelvis. Scribe Attestation: Documented by Hayes Jaquez, acting as a scribe for Hamilton Brewer MD. Provider Scribe Attestation: All medical record entries made by the Scribe were at my direction and personally dictated by me. I have reviewed the chart and agree that the record accurately reflects my personal performance of the history, physical exam, medical decision making, and the department course for this patient. I have also personally directed, reviewed, and agree with the discharge instructions and disposition. Disposition - Clinical Impression Clinical Impression: Abdominal pain - Patient ED Disposition Is Patient to be Admitted: No Counseled Patient/Family Regarding: Studies Performed, Diagnosis, Need For Followup - Disposition Referrals: [facility] [Outside] - 06/07/18 Disposition: Routine/Home Disposition Time: 12:46 Condition: STABLE Additional Instructions: Return if not better in 3 days. Prescriptions: Famotidine [Pepcid] 20 mg PO DAILY PRN #6 tab PRN Reason: Pain Instructions: Stomach Ache and Stomach Upset Print Language: SET[place]
[2018-06-04 11:12] VITALS: PULSE 74; RESP 20
[2018-06-04 12:32] VITALS: O2SAT 100
[2018-06-04 13:22] VITALS: BP 127/68
== END 2018-06-04 13:00 | disposition home or self-care (01) ==
LOC: H.ER 06:54
DX: R10.9 Unspecified abdominal pain (principal); I10 Essential (primary) hypertension; Z88.0 Allergy status to penicillin
CPT/HCPCS: 74177; 80053; 81025; 85025; 96361; 96374; 96375; 99284; J1885; J2270; J2405; J7030; Q9966; Q9967